=== PATIENT | female | born 1945 | race Caucasian/White ===

== ENCOUNTER 2023-12-15 10:43 | Emergency (ER) | payer MEDICARE, BC, SELFPAY ==
--- NOTE | 2023-12-15 10:46 | ED.GENMED ---
History of Present Illness
General
Chief Complaint: Medication Reaction
Time Seen by Provider: 12/15/23 10:46
History of Present Illness
History of Present Illness:
HPI: Patient came in by ambulance. Earlier today, she took niacin around 9 AM. She took it at the recommendation of her neurologist related some knee discomfort/weakness. At about 9:30 AM, she had facial flushing and sensation of warmth. She had
some vague dizziness as well. EMS was called and noted an episode where on the monitor she had a wide-complex rhythm�she does have a pacemaker that was placed. She had no other associated symptoms such as palpitations. Overall she spontaneously
feels improved currently and did not want to come here.
EXAM:
GENERAL: Well appearing in no distress
HEENT: Moist oral mucosa
CARDIOVASCULAR: No murmurs, normal heart rate, regular rhythm, No chest wall tenderness
PULMONARY: No respiratory distress, breath sounds are clear and equal
ABDOMEN: Soft with no peritoneal signs, no tenderness
NEUROLOGIC: Excellent strength all extremities, no coordination deficits
PSYCHIATRIC: Appropriate mental status, normal insight and judgement
EXTREMITIES: Nontender, no edema, moves all extremities equally
SKIN: Faint erythema noted to the face
TIME OF INITIAL ENCOUNTER: 10:45 AM
NUMBER AND COMPLEXITY OF PROBLEMS ADDRESSED AT THE ENCOUNTER
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
� Acute Exacerbation and/or Progression of Chronic Illness: This is an acute problem
� Differential Diagnosis includes: Niacin reaction, dysrhythmia
AMOUNT AND/OR COMPLEXITY OF DATA TO BE REVIEWED AND ANALYZED
� I performed an independent evaluation of and my interpretation is:
EKG: Sinus 60, left axis deviation, no acute ST abnormality,
CT:
X-rays:
Laboratory Studies:
Other:
� Review of other/old records: I reviewed records. The patient was admitted in 2021 for severe symptomatic bradycardia�a [employer] pacer was placed at that time.
� Clinical information was obtained by an independent historian: I spoke to EMS
� Prescriptions/Medications Considered but not given:
� Further testing considered but not performed:
RISK OF COMPLICATIONS AND/OR MORBIDITY OR MORTALITY OF PATIENT MANAGEMENT
� Social determinants of health affecting care: Lives at home
� Discussion with other providers:
� Escalation of care including admission/observation vs risk of discharge considered: Symptoms have improved spontaneously however we also gave aspirin as well
Past History
Past History
ED Past Medical History: HTN
Social History
Tobacco: Non-smoker
Alcohol: None
Drug: None
Phy Exam
Physical Exam
Physical Exam:
See HPI
Course
Orders/Labs/Results
Orders:
Orders
12/15/23 10:55
Aspirin 325 mg PO NOW STA
12/15/23 11:01
Electrocardiogram (*1) Urgent
Reason for Study: Vertigo / Dizzy
EKG- Treatment ONCE
Vital Signs
Initial and Last Documented VS:
Initial Vital Signs
Temp Pulse Resp BP Pulse Ox
97.4 F 72 16 154/78 97
12/15/23 10:59 12/15/23 10:59 12/15/23 10:59 12/15/23 10:59 12/15/23 10:59
Last Documented Vital Signs
Temp Pulse Resp BP Pulse Ox
97.4 F 61 17 154/78 96
12/15/23 10:59 12/15/23 12:00 12/15/23 12:00 12/15/23 10:59 12/15/23 12:00
*Critical Care Note
Total Time (30-74mins, 75-104mins- exclusive of procedures): Not Applicable
ED Attending Note
-
Portions of this chart may have been created with voice recognition software.� Occasional wrong word or��sound alike� substitutions may have occurred due to the inherent limitations of voice recognition software.
Discharge Plan
Departure
Patient Disposition: Home (Routine Discharge)
Date of Disposition: 12/15/23
Time of Disposition: 12:43
Patient with high blood pressure during this ER visit?: Yes
Discharge Problem:
Adverse reaction to niacin
Prescriptions:
No Action
amitriptyline 75 MG tablet
75 mg PO HS
cholecalciferol (vitamin D3) 2,000 UNITS tablet
2,000 units PO DAILY
Women's Daily Formula 1 EACH tablet
1 ea PO DAILY
Probiotic 1 EACH capsule, sprinkle
1 ea PO DAILY
Cinnamon 1 CAPSULE Capsule
1 cap PO BID
cyclobenzaprine 10 MG tablet
10 mg PO TIDPRN PRN (Reason: pain)
hydrocodone-acetaminophen 1 EACH tablet
0.5 - 1 ea PO Q4H PRN (Reason: pain)
Stool Softener
2 - 3 tab PO PRN PRN (Reason: constipation )
metoprolol succinate 50 mg Tablet Extended Release 24 Hr
50 mg PO DAILY
fiber
1 tab PO BID
fluticasone propionate 50 mcg/actuation Mineral,Suspension
1 spray INTRANASAL BID PRN (Reason: allergies)
Referrals:
Sameera Ledezma CRNP [Family Provider] -
Activity Restrictions/Additional Instructions:
EKG is unremarkable. Return here if worse. Follow-up your primary care doctor.
Interventions
Interventions:
*Risk Screen - Suicide Last Done: 12/15/23 10:59
*General Assessment Last Done: 12/15/23 10:59
*Neglect/Abuse Screening Last Done: 12/15/23 10:59
ED-Skin Assessment Last Done: 12/15/23 11:28
ED- Pulmonary Assessment Last Done: 12/15/23 11:28
Discharge Date and Time
Print Language: SERBIAN
[2023-12-15 10:59] VITALS: BP 154/78
[2023-12-15] MEDS: ASPIRIN 325 MG PO (11:17)
[2023-12-15 13:00] VITALS: BP 144/76
== END 2023-12-15 13:01 | disposition home or self-care (01) ==
LOC: EMR 10:43
PROVIDERS: EMERGENCY PHYSICIAN Emergency Medicine; FAMILY PHYSICIAN Nurse Practitioner
DX: R42 Dizziness and giddiness (principal); R23.2 Flushing; T46.7X5A Adverse effect of peripheral vasodilators, initial encounter; K57.92 Diverticulitis of intestine, part unspecified, without perforation or abscess without bleeding; Z95.0 Presence of cardiac pacemaker
CPT/HCPCS: 99283; 93005

== ENCOUNTER → 2023-12-24 14:09 | Outpatient (REF) | payer MEDICARE, BC, SELFPAY ==
[2023-12-24 15:31] LABS: Creatine Phosphokinase 44 U/L (30-135); LDH 175 U/L (120-246)
[2023-12-24 16:21] LABS: Vitamin B12 912 pg/ml (239-931)
[2023-12-26 22:34] LABS: Aldolase 5.3 U/L (1.2-7.6)
== END ==
LOC: REG 14:09
PROVIDERS: ATTENDING PHYSICIAN Psychiatry & Neurology Neurology; FAMILY PHYSICIAN Nurse Practitioner
DX: E53.8 Deficiency of other specified B group vitamins (principal); R29.898 Other symptoms and signs involving the musculoskeletal system
CPT/HCPCS: 36415; 82085; 82550; 82607; 83615

== ENCOUNTER → 2024-07-10 10:31 | Outpatient (REF) | payer MEDICARE, BC, SELFPAY ==
[2024-07-10 13:07] LABS: Hemoglobin 13.3 g/dL (12.0-16.0); Mean Corp Hgb Conc. 32.4 g/dL (33.0-37.0); Mean Corpuscular Hgb 29.5 pg (27.0-31.0); Mean Corpuscular Volume 90.9 fL (81.0-99.0); Platelet Count 250 10^3/uL (130-400); Red Blood Cell Count 4.51 10^6/uL (4.20-5.40); Red Cell Dist. Width 13.8 % (11.5-14.5)
[2024-07-10 13:39] LABS: ALT (SGPT) 21 U/L (0-35); AST (SGOT) 23 U/L (14-36); Albumin 4.4 g/dl (3.5-5.0); Alkaline Phosphatase 75 U/L (38-126); Blood Urea Nitrogen 19 mg/dl (7-17); Carbon Dioxide 28 mmol/L (22-30); Chloride 100 mmol/L (98-107); Glucose 132 mg/dl (70-99); HDL Cholesterol 48 mg/dl; LDL Cholesterol, Calculated 73 mg/dl; Potassium 5.2 mmol/L (3.5-5.1); Sodium 136 mmol/L (135-145); Total Bilirubin 0.3 mg/dl (0.2-1.3); Total Cholesterol 159 mg/dl (50-199); Triglyceride 190 mg/dl (10-149); Very Low Density Lipoprotein 38 mg/dl (0-30); eGFR > 60.00
== END ==
LOC: WDC 10:31
PROVIDERS: ATTENDING PHYSICIAN Obstetrics & Gynecology Gynecology; FAMILY PHYSICIAN Internal Medicine; REFERRING PHYSICIAN Specialist
DX: Z78.0 Asymptomatic menopausal state (principal); I10 Essential (primary) hypertension; Z12.31 Encounter for screening mammogram for malignant neoplasm of breast; R73.03 Prediabetes
CPT/HCPCS: 36415; 77063; 77067; 77080; 80053; 80061; 83036; 85027

== ENCOUNTER → 2024-07-24 09:04 | Outpatient (REF) | payer MEDICARE, BC, SELFPAY | LOC: WDC 09:04 | PROVIDERS: ATTENDING PHYSICIAN Obstetrics & Gynecology Gynecology; FAMILY PHYSICIAN Internal Medicine | DX: R92.8 Other abnormal and inconclusive findings on diagnostic imaging of breast (principal) | CPT/HCPCS: 77065 ==

== ENCOUNTER → 2024-07-31 06:43 | Outpatient (REF) | payer MEDICARE, BC, SELFPAY ==
--- NOTE | 2024-07-31 09:12 | OID.BR.INTR ---
[facility] Breast Navigator - Initial
- -
Date of Contact: 07/31/24
Met with patient. Patient given written information on navigator services available at [facility]. Will follow up as needed per protocol.
== END ==
LOC: WDC 06:43
PROVIDERS: ATTENDING PHYSICIAN Obstetrics & Gynecology Gynecology
DX: R92.1 Mammographic calcification found on diagnostic imaging of breast (principal)
CPT/HCPCS: 88305; 19081; 76098; A4648

== ENCOUNTER → 2025-01-22 12:57 | Outpatient (REF) | payer MEDICARE, BC, SELFPAY | LOC: RCS 12:57 | PROVIDERS: ATTENDING PHYSICIAN Internal Medicine Cardiovascular Disease; FAMILY PHYSICIAN Internal Medicine | DX: R00.2 Palpitations (principal) | CPT/HCPCS: 93306 ==